=== PATIENT | female | born 1960 | race Caucasian/White ===

== ENCOUNTER 2024-12-21 01:00 | Day surgery (SDC) | payer BC, SELFPAY ==
[2024-12-07 11:37] VITALS: BMI 34.8
--- NOTE | 2024-12-07 11:50 | PC.NURSE ---
Report to the Outpatient Waiting Room, entrance under the green pavilion located off [facility], at time _0845am on date 12/21/24 . Planned Procedure Time: ___1045am. .? Time changes happen often and if your time is changed the preop area will call you the afternoon before. - You and your visitor will be asked to self-screen and do not enter if you have any COVID symptoms. Please call surgeon if you need to reschedule. - A mask is optional within the hospital at this time. Patients may have clear liquids (water, carbonated beverages, clear teas, apple juice) until 3 hours prior to surgery with a maximum of 20 ounces. - No food from midnight until time of surgery and no smoking, or chewing tobacco (or any form of nicotine). No chewing gum, candy or mints. (0745am) Take only the following medications with a SIP of water on the morning of surgery: NONE DO NOT STOP ANY OF YOUR OTHER PRESCRIPTION MEDICATIONS PRIOR TO SURGERY EXCEPT THE FOLLOWING Hold all vitamins and supplements for [address] Parks. .Date to take last dose___12/18/24 Medications to discontinue per physician ____None Date to take last dose None Please no make-up, nail portuguese, hairspray, perfume, deodorant, or body powder the day of surgery.? No jewelry (including any body piercings) or valuables the day of surgery, leave them at home.? Please take a shower or bath the night before, or the morning of, surgery with an antibacterial soap.? Wear comfortable, loose fitting clothing.? Children are encouraged to wear pajamas. - Jewelry must be removed prior to entering the operating room.? Rings and piercings that are not removed may be cut off. - The hospital will not accept responsibility for valuables.? - Please leave all valuables, including medications, at home the day of surgery. If you are going home after surgery, a licensed bobtail driver must drive you home.? - NO public transportation without another adult if you receive anesthesia. - We recommend that an adult stay with you for 24 hours following discharge. - We also recommend that you do not drive, make important decision, drink alcoholic beverages, or take any drugs that were not prescribed by your health care provider for at least 24 hours after your discharge time. Follow any additional instructions given to you from your surgeon. Telephone instructions given to __patient and asked if any additional questions and then verbalized understanding. Patient advised to call surgeon office or pre surgery nurse liaison [phone] if any additional questions.
--- NOTE | 2024-12-17 04:57 | PM.IMHP ---
H&P: HPI History of Present Illness Date/Time: 12/17/24 04:57 Chief Complaint: mixed incontinence Narrative: history of mixed incontinence. Desires surgical procedure to address stress incontinence Review of Systems Review of Systems: All systems reviewed & are unremarkable except as noted in HPI and below PMFSH Social History Social History Smoking status: Never smoker Alcohol intake: never Substance use: never Living arrangements: with family Additional living arrangements comments: Spiritual care concerns: No Meds Home Medications and Allergies Home Medications ?Medication ?Instructions ?Recorded ?Confirmed ?Type escitalopram oxalate 20 mg tablet 20 mg PO DAILY PRN anxiety 12/07/24 12/07/24 History metoclopramide HCl 5 mg tablet 5 mg PO QID 12/07/24 12/07/24 History pregabalin 150 mg capsule 150 mg PO HS 12/07/24 12/07/24 History solifenacin 10 mg tablet 10 mg PO DAILY 12/07/24 12/07/24 History Allergies Allergy/AdvReac Type Severity Reaction Status Date / Time amoxicillin Allergy Intermediate SOB, rash, Verified 12/07/24 11:34 swelling Penicillins Allergy Intermediate Rash, SOB, Verified 12/07/24 11:34 Swelling fentanyl AdvReac Intermediate unknown Verified 12/07/24 11:34 Exam Narrative: urethral mobility present Assessment and Plan Assessment and plan (1) YARELI (stress urinary incontinence, female): Code(s): N39.3 - Stress incontinence (female) (male) Status: Acute Assessment and Plan: plan for urethral sling. Understands risks of bleeding, infection, damage to surrounding organs, damage to the urinary tract, vaginal mesh extrusion, urinary tract mesh erosion, obstructive voiding requiring secondary procedure, hip and leg pain, dyspareunia, persistent recurrent incontinence. Agrees to proceed
--- OUTSIDE RECORDS SUMMARY | 2024-12-21 01:03 | XMS_ITS | Encounter Summary ---
Author Organization [facility] Address [address] [place] [address] Phone Care Team Providers Care Legal Department Manager Name Role Phone Julia Albarran PAC Unavailable Julia Albarran PAC Primary Care Provider + Neva Krishnamurthy APRN, FARM LAB[employer]ER Unavailable Reason for Visit * Reason Comments Medication Refill Encounter Details Date Type Department Care Team (Late st Contact Info) Description 02/14/2023 Refill [facility] - Family Medicine [facility] [address] [place] [address] Julia Albarran, PAC [address] [place] [address] Medication Refill Social History Tobacco Use Types Packs/Day Years Used Date Smoking Tobacco: Never Smokeless Tobacco: Never Alcohol Use Standard Drinks/Week Comments Not Currently 0 (1 standard drink = 0.6 oz pur e alcohol) PHQ-2 Answer Date Recorded Total Score - Questions 1-9 0 05/0 09/2021 Education Answer Date Recorded What is the highest level of school you have completed or the highest degree you have received? Bachelor's degree (e.g., BA, AB, BS) 07/14/2022 Sexually Active Control Partners Comments Not Currently None Male Comments No Sex and Gender Information Value Date Recorded Sex Assigned at Not on file Legal Sex Female 2:43 PM CDT Gender Identity Not on file Sexual Orientation Not on file COVID-19 Exposure Response Date Recorded In the last 10 days, have yo u been in contact with someone who was confirmed or suspected to have Coronavirus/COVID-19? No / Unsure 01/21/2023 7:52 AM CDT documented as of this encounter Miscellaneous Notes * Telephone Encounter - Sabrina Beverly RN - 02/14/2023 12:08 PM CDT 90 day refill on file according to last Rx 11/04/22 documented in this encounter Plan of Treatment Upcoming Encounters Date Type Department Care Team (Late st Contact Info) Description 02/07/2025 11:30 AM CDT Office Visit [facility] [address] [place] [address] Julia Albarran, PAC [address] [place] [address] 03/28/2025 4:00 PM CDT Office Visit [facility] [address] [place] [address] Julia Albarran PAC [address] [place] [address] documented as of this encounter Visit Diagnoses Not on filedocumented in this encounter Care Teams Legal Department Manager Relationship Specialty Start Date End Date Julia Albarran PAC [address] [place] [address] PCP - General Physician Hourly Shift Manager 12/21/21 Julia Albarran PAC [address] [place] [address] Physician Hourly Shift Manager Physician Hourly Shift Manager 12/21/21 Neva Krishnamurthy APRN, FARM LABORER [address] [place] [address] Nurse Practitioner Advanced Practice Nurse 12/24/22 documented as of this encounter
--- OUTSIDE RECORDS SUMMARY | 2024-12-21 01:03 | XMS_ITS | Clinical Summary ---
Author Organization [facility] Address [address] [place] [address] Phone Care Team Providers Care In Home Caregiver Name Role Phone Julia Albarran Unavailable [phone] Julia Albarran Primary Care Provider + Neva Krishnamurthy APRN, COOKING CHEF Unavailable Allergies Active Allergy Reactions Criticality Noted Date Comments Fentanyl And Related Other (see Comments) 12/21 Couldn't wake up Iodinated Contrast Media Shortness of Breath,Other (see Comments) High 11/11/2023 Chest tightness Morphine Other (see Comments) 12/21/2021 Headache and dry heaves Penicillins Anaphylaxis 12/21/2021 Midazolam Other (see Comments) 03/16/2022 Trouble waking up Medications ondansetron (ZOFRAN-ODT) 4 MG TABLET DISPERSIBLEInd ications:Vomit ing, unspecified vomiting type, unspecified whether nausea present DISSOLVE 1 TABLET BY MOUTH EVERY 8 HOURS NEEDED FOR NAUSEA - 1ST LINE. 20 Tablet 03/21/20 23 Active nystatin 418171 UNIT/GM Powder Apply 3 times daily. Apply to affected area as directed under skin folds 60 g 1 12/09/19 24 Active hydrOXYzine (ATARAX) 25 MG Tablet Take 1 Tablet by mouth every 6 hours as needed for Anxiety. 90 Tablet 01/17/20 24 Active naproxen (NAPROSYN) 500 MG Tablet TAKE 1 TABLET BY MOUTH 2 TIMES DAILY NEEDED FOR MILD OR MORE SEVERE PAIN. 20 Tablet 9 06/28/20 24 Active cyclobenzaprin e (FLEXERIL) 10 MG Tablet TAKE 1 TABLET BY MOUTH EVERY 6-8 HOURS NEEDED 12 Tablet 9 06/28/20 24 Active fluticasone (FLONASE) 50 MCG/ACT Suspension 2 Sprays by Nasal route daily. Use in each nostril as directed. 16 g 1 09/10/19 25 Active metoclopramide (REGLAN) 5 MG Tablet TAKE 1 TABLET BY MOUTH 4 TIMES DAILY (BEFORE MEALS AND NIGHTLY). 90 Tablet 10/17/19 25 Active escitalopram (LEXAPRO) 20 MG Tablet TAKE 1 TABLET BY MOUTH DAILY. 90 Tablet 1 10/17/19 25 Active pantoprazole (PROTONIX) 40 MG Tablet Delayed Response TAKE 1 TABLET BY MOUTH 2 TIMES DAILY. 180 Tablet 1 10/17/19 25 Active Blood Glucose Monitoring Suppl DeviceIndicati ons:Hypoglycem ia Test once daily if feeling symptoms of low blood sugar 1 Each 11/07/19 25 Active Glucose Blood (Glucose Meter Test) StripIndicatio ns:Hypoglycemi a Test once daily 90 Strip 11/07/19 25 Active Lancets MiscIndication s:Hypoglycemia Test once daily 100 Lancet . 11/07/19 25 Active pregabalin (LYRICA) 150 MG CapsuleIndicat ions:Fibromyal merna Take 1 Capsule by mouth nightly. 90 Capsule 11/08/19 25 Active potassium chloride CR (KLORCON) 10 MEQ Tablet Controlled ReleaseIndicat ions:Hypokalem ia Take 1 Tablet by mouth daily. 90 Tablet 3 11/16/19 25 Active solifenacin (VESICARE) 10 MG TabletIndicati ons:Urinary frequency,Urin car incontinence, urge TAKE 1 TABLET BY MOUTH DAILY. 30 Tablet 11 11/27/19 25 Active ergocalciferol (VITAMIN D) 11654 UNIT CapsuleIndicat ions:Vitamin D deficiency Take 1 Capsule by mouth once a week. 12 Capsule 1 12/19/19 25 Active Denosumab (PROLIA) 60 MG/ML Solution Prefilled SyringeIndicat ions:Osteoporo sis 1 mL by Subcutaneous route See Admin Instructions. Indications: Osteoporosis 1 mL 12/21/19 25 Active solifenacin (VESICARE) 10 MG TabletIndicati ons:Urinary frequency,Urin car incontinence, urge TAKE 1 TABLET BY MOUTH DAILY. 30 Tablet 1 10/17/19 25 2024 Discontinued ergocalciferol (VITAMIN D) 14626 UNIT CapsuleIndicat ions:Vitamin D deficiency Take 1 Capsule by mouth once a week. 12 Capsule 1 11/16/19 25 2024 Discontinued(R eorder) Active Problems Problem Noted Date Diagnosed Date Osteoporosis 12/18/2024 History of Shant-en-Y gastric bypass 12/09/2023 Chronic gastroesophageal reflux disease 02/03/20 22 Anxiety and depression 12/21/2021 Fibromyalgia 12/21/2021 Encounters Date Type Department Care Team Description 12/18/2024 3:45 PM CDT Office Visit [facility] [address] [place] [address] Julia Albarran PAC Hypokalemia (Primary Dx); Vitamin D deficiency; Chronic gastroesophageal reflux disease; Osteoporosis, unspecified osteoporosis type, unspecified pathological fracture presence; Has daytime drowsiness Discharge Disposition: Discharged to home or Selfcare 12/18/2024 1:35 PM CDT - 12/18/2024 11:59 PM CDT [facility] [address] [place] [address] Julia Albarran PAC Discharge Disposition: Discharged to home or Selfcare 12/17/2024 Travel 11/26/2024 Refill [facility] [place] [id number] Maninder Thurman APRN, COOKING CHEF Medication Refill 11/15/2024 Results Follow-Up [facility] [address] [place] [address] Julia Albarran, MARLA VITAMIN D, 25 HYDROXY TOTAL, CMP (COMPREHENSIVE METABOLIC PANEL), C PEPTIDE, Additional followed-up results: 3 11/07/2024 Refill [facility] [address] [place] [address] Julia Albarran, MARLA Medication Problem 11/06/2024 3:00 PM CDT Office Visit [facility] [address] [place] [address] Julia Albarran, MARLA Hypoglycemia (Primary Dx); Vitamin D deficiency; Near syncope; Fibromyalgia Discharge Disposition: Discharged to home or Selfcare 11/06/2024 Travel 10/17/2024 Refill [facility] [address] [place] [address] Black Brewer APRN, COOKING CHEF Medication Refill 10/17/2024 Refill [facility]2 [facility] [place] [address] Maninder Thurman APRN, COOKING CHEF Medication Refill 10/17/2024 Refill [facility] [address] [place] [address] Julia Albarran, MARLA Medication Refill 09/26/2024 Telephone [facility] [facility] [place] [address] Maninder Thurman APRN, COOKING CHEF from Last 3 Months Immunizations Immunization Administration Dates Next Due COVID-19, MRNA, LNP-S, BIVAL ENT , PFIZER, 30 MCG/0.3 ML (12+ Y/O) 06/03/2022 Covid-19, Subunit, Rs-nanopa rticle, Adjuvanted, Pf, 5 Mcg/0.5 mL 07/01/2023 Influenza Vaccine, Quadrivalent, PF 06/18/2023,1 Influenza, high-dose, trivalent, PF 01/13/2024 Pneumococcal conjugate PCV20 , polysaccharide [id number] conjugate, adjuvant, PF 07/01/2023 RSV, Recombinant, Protein Carpenter bunit Rsvpref, Adjuvant Recon (Arexvy) 06/09/2023,06/06/2023 TDAP Vaccine 09/15/2023 Zoster Vaccine Recombinant 09/15/2023,06/09/2023 ,06/06/2023 Family History Medical History Relation Name Comments Chronic Obstructive Pulmonary Disease Father Cancer Mother Jalyn Brain tumor Depression Mother Jalyn No Known Problems Sister Relation Name Status Comments Father Mother Jalyn Sister Alive Social History Tobacco Use Types Packs/Day Years Used Date Smoking Tobacco: Never Smokeless Tobacco: Never Tobacco Cessation:Counseling Given: No Alcohol Use Standard Drinks/Week Comments Not Currently 0 (1 standard drink = 0.6 oz pure alcohol) quit drinking in 2008 or 2009, was a daily drinker since 1998 [facility] amcureities Answer Date Recorded In the past 12 months has [employer] electric, gas, oil, or water company threatened to shut off services in your home? No 11/06/2024 Social Connection and Isolat ion Panel [NHANES] Answer Date Recorded In a typical week, how many times do you talk on the phone with family, friends, or neighbors? More than three times a week 11/06/2024 How often do you get togethe r with friends or relatives? Never 11/06/2024 How often do you attend chur ch or holiness services? Never 11/06/2024 Do you belong to any clubs o r organizations such as mu-ism groups, unions, fraternal or athletic groups, or school groups? Yes 11/06/2024 How often do you attend meet ings of the clubs or organizations you belong to? Never 11/06/2024 Are you , , di vorced, , never , or living with a partner? 11/06/2024 AUDIT-C Answer Date Recorded Q1: How often do you have a drink containing alcohol? Never 11/06/2024 Q2: How many drinks containi ng alcohol do you have on a typical day when you are drinking? Patient does not drink Q3: How often do you have si x or more drinks on one occasion? Never 11/06/2024 Overall Financial Resource Strain (CARDIA) Answe r Date Recorded How hard is it for you to pa y for the very basics like food, housing, medical care, and heating? Not hard at all 11/06/2024 PHQ-2 Answer Date Recorded Total Score - Questions 1-9 0 08/23 [place] [employer] - Occupational Stress Questionnaire Answer Date Recorded Do you feel stress - tense, restless, nervous, or anxious, or unable to sleep at night because your mind is troubled all the time - these days? To some extent 11/06/2024 Exercise Vital Sign Answer Date Recorde d On average, how many days pe r week do you engage in moderate to strenuous exercise (like a brisk walk)? 0 days 11/06/2024 On average, how many minutes do you engage in exercise at this level? 0 min 11/06/2024 Hunger Vital Sign Answer Date Recorded Within the past 12 months, y ou worried that your food would run out before you got the money to buy more. Never true 11/07/19 25 Within the past 12 months, t he food you bought just didn't last and you didn't have money to get more. Never true 11/06/2024 PRAPARE - Transportation Answer Date Re corded In the past 12 months, has l ack of transportation kept you from medical appointments or from getting medications? No 10/20 In the past 12 months, has l ack of transportation kept you from meetings, work, or from getting things needed for daily living? No 11/06/2024 Housing Stability Vital Sign Answer Gio e Recorded In the last 12 months, was t here a time when you were not able to pay the mortgage or rent on time? No 12/09/2023 In the last 12 months, how many places have you lived? 1 12/09/2023 In the last 12 months, was t here a time when you did not have a steady place to sleep or slept in a residential (including now)? No 12/09/2023 Housing Stability Vital Sign Answer Gio e Recorded In the last 12 months, was t here a time when you were not able to pay the mortgage or rent on time? No 11/06/2024 Number of Times Moved in the Last Year Not on fi le 11/06/2024 At any time in the past 12 [facility], were you homeless or living in a residential (including now)? No 11/06/2024 Education Answer Date Recorded What is the highest level of school you have completed or the highest degree you have received? Bachelor's degree (e.g., BA, AB, BS) 07/14/2022 Sexually Active Control Partners Comments Not Currently Post-menopausal Male Comments No Sex and Gender Information Value Date Recorded Sex Assigned at Not on file Legal Sex Female 2:43 PM CDT Gender Identity Not on file Sexual Orientation Not on file Last Filed Vital Signs Vital Sign Reading Time Taken Comments Blood Pressure 128/84 12/18/2024 3:25 PM CDT Pulse 68 12/18/2024 3:25 PM CDT Temperature 36.5 C (97.7 F) 12/18/2024 3:25 PM CDT Respiratory Rate 18 09/10/2024 9:01 AM DIRECTOR OF FLIGHT OPERATIONS Oxygen Saturation 95% 12/18/2024 3:25 PM CDT Inhaled Oxygen Concentration - - Weight 93.4 kg (206 lb) 12/18/2024 3:25 PM CDT Height 162.6 cm (5' 4 ) 12/18/2024 3:25 PM CDT Body Mass Index 35.36 12/18/2024 3:25 PM CDT Plan of Treatment Upcoming Encounters Date Type Department Care Team (Late st Contact Info) Description 02/07/2025 11:30 AM CDT Office Visit [facility] [address] [place] [address] Julia Albarran, PAC [address] [place] [address] 03/28/2025 4:00 PM CDT Office Visit [facility] [address] [place] [address] Julia Albarran, PAC [address] [place] [address] Health Maintenance Due Date Last Done Comments Pap Smear 1980 Cervical Cancer Screening (CCS) 1989 HPV/Cotest 1989 Cologuard 2009 Immunochemical Fecal Occult Blood 2009 Mammogram 05/30/2024 05/30/2023 SARS-COV-2 Immunization ( season) 2024 05/04/2024, 07/01/2023, 06/03/2022, Additional history exists Influenza Immunization (Season Ended) 2025 01/13/2024, 06/18/2023, 05/27/2022 DEXA Bone Density 12/18/2026 12/18/2024 Colonoscopy 07/08/2033 07/08/2023 Colorectal Cancer Screening 07/08/2033 Td Immunization Every 10 Years (Adults With 1 Tdap) 09/15/2033 09/15/2023 07/08/2023 Hepatitis C Virus (HCV) Screening Completed 04/21/2023 Respiratory Syncytial Virus (RSV) Immunization (Adult) Completed 06/09/2023, 06/06/2023 Pneumococcal Immunization (50+ years) Completed 07/01/2023 Pneumococcal Immunization Combined Discontinued 07/01/2023 DTaP/Tdap/Td Immunization Discontinued 09/15/2023 TdaP Immunization Discontinued 09/15/2023 Zoster Immunization Completed 09/15/2023, 06/09/2023, 06/06/2023 Hepatitis B Immunization Aged Out No longer eligible based on patient's age to complete this topic Meningococcal Immunization (ACWY) Aged Out No longer eligible based on patient's age to complete this topic Rotavirus Immunization Aged Out No lo nger eligible based on patient's age to complete this topic Goals Goal Patient Goal Type Associated Problems Recent Progress Patient-Stated? Author Behavioral Health Behavioral Health Yes Dejah Pisano, LOAN MANAGER Note: I have a goal of getting my life and house straight. Procedures Procedure Name Priority Date/Time Associated Diagnosis Comments CINTHIA BONE DENSITOMETRY AXIAL SKELETON Routine 12/18/2024 2:06 PM CDT Screening for osteoporosis EXTERNAL UROLOGY REFERRAL Routine 11/29/2024 12:00 AM CDT Urinary incontinence, unspecified type CBC WITH AUTO DIFFERENTIAL Routine 11/06/2024 4:15 PM CDT Near syncope MAGNESIUM (MG) Routine 11/06/2024 4:15 PM CDT Near syncope COMPLETE BLOOD COUNT (CBC) WITH DIFF Routine 11/06/2024 4:15 PM CDT Near syncope INSULIN LEVEL Routine 11/06/2024 4:15 PM CDT Hypoglycemia C PEPTIDE Routine 11/06/2024 4:15 PM CDT Hypoglycemia CMP (COMPREHENSIVE METABOLIC PANEL) Routine 11/06/2024 4:15 PM CDT Hypoglycemia VITAMIN D, 25 HYDROXY TOTAL Routine 11/06/2024 4:15 PM CDT Vitamin D deficiency [facility] SCREENING BILATERAL DIGITAL W CAD W LESVIA Routine 05/30/2023 8:46 AM CDT Screening mammogram for breast cancer HEPATITIS C ANTIBODY Routine 04/21/2023 4:54 PM CDT Need for hepatitis C screening test from Last 3 Months or Most Recently Relevant to Health Maintenance Results * [facility] BONE DENSITOMETRY AXIAL SKELETON (12/18/2024 2:06 PM CDT) Anatomical Region Laterality Modality BODY N/A Computed Radiogr aphy 12/18/2024 2:29 PM CDT Impressions 12/18/2024 2:32 PM CDT IMPRESSION: Osteoporosis. REFERENCE: Bone mineral density: T-Score: Normal (T-score above or = -1.0) Low bone mass (T-score between -1.0 and -2.5) replaces the previously used term osteopenia Osteoporosis (T-score = or below -2.5) Z-Score: Within the expected range for age (Z-score above -2.0) Below the expected range for age (Z-score is -2.0 or below) Please see below follow up recommendations. Medical evaluation for secondary causes of low bone mineral density may be appropriate. FRAX is a World Health Organization validated fracture risk assessment tool that calculates a person's 10 year probability of a major osteoporosis related fracture and hip fracture. According to the National Osteoporosis Foundation guidelines, postmenopausal women and men age 50 or older with low bone mass and a 10 year probability of a major osteoporosis related fracture = or greater than 20% or a 10 year probability of a hip fracture = or greater than 3% should be considered for pharmacological treatment for the prevention of osteoporosis. For further information, including treatment recommendations, please refer to the 2019 ISCD Official Positions (http://www.iscd.org) and the NOF's Clinician's Guide to Prevention and Treatment of Osteoporosis (http://www.nof.org/professionals/clinical-guidelines) Narrative 12/18/2024 2:32 PM CDT EXAM DESCRIPTION: [facility] BONE DENSITOMETRY AXIAL SKELETON REASON FOR STUDY: 64 y/o year old F with given history of: Postmenopausal status. History of prior fracture and secondary osteoporosis. Patient has taken/is taking vitamin-D and multivitamin Nutrition Services Assistant/Model: [employer] (S/N [id number]) Facility LSC value of 0.028 for the AP spine and 0.033 for the femur. CLINICAL INFORMATION: Current height: 64 inches Maximum height: 65 inches Weight: 203 pounds Risk factors: Prior fracture and secondary osteoporosis COMPARISON: None available FINDINGS: AP LUMBAR SPINE L1-L4: Total BMD is 0.876 g/cm2 T-score is -2.6 LEFT HIP: Total BMD is 0.688 g/cm2 T-score is -2.5 Femoral neck BMD is 0.697 g/cm2 T-score is -2.5 FRAX: FRAX not reported due to T-scores of hip, femoral neck and/or spine being at or below -2.5 (Osteoporosis). THIS IS AN ELECTRONICALLY VERIFIED FINAL REPORT 12/18/2024 2:29 PM - Electronically signed by Barbie Brown M.D. TW: TW Report ID: [id number] Reading Location: [id number] Procedure Note Barbie Brown MD - 12/18/2024 EXAM DESCRIPTION: [facility] BONE DENSITOMETRY AXIAL SKELETON REASON FOR STUDY: 64 y/o year old F with given history of: Postmenopausal status. History of prior fracture and secondary osteoporosis. Patient has taken/is taking vitamin-D and multivitamin Nutrition Services Assistant/Model: [employer] (S/N [id number]) Facility LSC value of 0.028 for the AP spine and 0.033 for the femur. CLINICAL INFORMATION: Current height: 64 inches Maximum height: 65 inches Weight: 203 pounds Risk factors: Prior fracture and secondary osteoporosis COMPARISON: None available FINDINGS: AP LUMBAR SPINE L1-L4: Total BMD is 0.876 g/cm2 T-score is -2.6 LEFT HIP: Total BMD is 0.688 g/cm2 T-score is -2.5 Femoral neck BMD is 0.697 g/cm2 T-score is -2.5 FRAX: FRAX not reported due to T-scores of hip, femoral neck and/or spine being at or below -2.5 (Osteoporosis). THIS IS AN ELECTRONICALLY VERIFIED FINAL REPORT 12/18/2024 2:29 PM - Electronically signed by Barbie Brown M.D. TW: TW Report ID: [id number] Reading Location: [place] [address] IMPRESSION: Osteoporosis. REFERENCE: Bone mineral density: T-Score: Normal (T-score above or = -1.0) Low bone mass (T-score between -1.0 and -2.5) replaces the previously used term osteopenia Osteoporosis (T-score = or below -2.5) Z-Score: Within the expected range for age (Z-score above -2.0) Below the expected range for age (Z-score is -2.0 or below) Please see below follow up recommendations. Medical evaluation for secondary causes of low bone mineral density may be appropriate. FRAX is a World Health Organization validated fracture risk assessment tool that calculates a person's 10 year probability of a major osteoporosis related fracture and hip fracture. According to the National Osteoporosis Foundation guidelines, postmenopausal women and men age 50 or older with low bone mass and a 10 year probability of a major osteoporosis related fracture = or greater than 20% or a 10 year probability of a hip fracture = or greater than 3% should be considered for pharmacological treatment for the prevention of osteoporosis. For further information, including treatment recommendations, please refer to the 2019 ISCD Official Positions (http://www.iscd.org) and the NOF's Clinician's Guide to Prevention and Treatment of Osteoporosis (http://www.nof.org/professionals/clinical-guidelines) Julia Albarran PAC IMG DEXA ORDERABLES Lucita l Result * EXTERNAL UROLOGY REFERRAL (11/29/2024 12:00 AM CDT) 11/29/2024 Julia Albarran PAC OUTPT REFERRALS EXT/INT Final Result SCAN * VITAMIN D, 25 HYDROXY TOTAL (11/06/2024 4:15 PM CDT) VITAMIN D, 25 HYDROX 12.4 ng/mL 11/06/2024 5:29 PM CDT [facility] Blood Venipuncture / Unknown 11/06/2024 4:15 PM CDT 11/06/2024 4:31 PM CDT Narrative [facility] - 11/06/2024 5:29 PM CDT Published reference ranges for Vitamin D vary depending on time and place and method of testing, and on patient's age, sex, ethnicity and levels of other measured analytes such as parathormone, calcium and phosphorus. The result should be evaluated in conjunction with clinical findings and suspicions. [place] [employer] and [employer] Clinical Practice Guidelines: Status Vitamin D levels (ng/mL) Deficient <=20 At risk of inadequacy 21-29 Sufficient 30-100 Centers of Disease Control and Prevention Guidelines: Status Vitamin D levels (ng/mL) Deficient <13 At risk of inadequacy 13-19 Sufficient 20-50 Possibly harmful >50 References: [place] [employer], 2010 Dietary reference intakes for calcium and vitamin D. Pr[place]: The National Academies Press. Jose M, Aiden N, Cheryl MUNOZ, et al., Evaluation, treatment, and prevention of Vitamin D deficiency: an Endocrinology Clinical Practice Guideline. JCEM 2011 96: 7 4714-7977. Robert A, Maico C, Lolly D, et al., Vitamin D Status: [place], 2400-4429, [facility] data brief, no. 59, MD Grzegorz: [facility] Statistics. 2011. us Julia Drakematheus PAC CHEMISTRY ORDERABLES Fin al Result [facility] #[address] [place] [address] * (ABNORMAL) CBC WITH AUTO DIFFERENTIAL (11/06/2024 4:15 PM CDT) WBC 5.84 4.00 - 12.00 10(3)/mcL 11/06/2024 4:47 PM CDT [facility] RBC 4.90 3.80 - 5.30 10(6)/mcL 11/06/2024 4:47 PM CDT [facility] HEMOGLOBIN (HGB) 12.8 12.0 - 15.8 g/dL 11/06/2024 4:47 PM CDT [facility] HEMATOCRIT (HCT) 40.6 36.0 - 47.0 % 11/06/2024 4:47 PM CDT [facility] MCV 82.9 82.0 - 96.0 fL 11/06/2024 4:47 PM CDT [facility] MCH 26.1 26.0 - 34.0 pg 11/06/2024 4:47 PM CDT [facility] MCHC 31.5 31.0 - 36.0 g/dL 11/06/2024 4:47 PM CDT [facility] PLATELET COUNT 273 140 - 440 10(3)/mcL 11/06/2024 4:47 PM CDT [facility] RDW 15.3 11.8 - 15.5 % 11/06/2024 4:47 PM CDT [facility] MPV 10.5 9.7 - 12.4 fL 11/06/2024 4:47 PM CDT [facility] NEUTROPHILS 50.2 47.0 - 73.0 % 11/06/2024 4:47 PM CDT [facility] LYMPHOCYTES 36.6 18.0 - 42.0 % 11/06/2024 4:47 PM CDT [facility] MONOCYTES 6.3 4.0 - 12.0 % 11/06/2024 4:47 PM CDT [facility] EOSINOPHILS 5.5(H) 0.0 - 5.0 % 11/06/2024 4:47 PM CDT [facility] BASOPHILS 1.4(H) 0.0 - 1.0 % 11/06/2024 4:47 PM CDT [facility] ABSOLUTE NEUTROPHILS 2.93 1.60 - 7.70 10(3)/[facility] 11/06/2024 4:47 PM CDT [facility] ABSOLUTE LYMPHOCYTES 2.14 1.30 - 3.20 10(3)/[facility] 11/06/2024 4:47 PM CDT [facility] ABSOLUTE MONOCYTES 0.37 0.20 - 1.00 10(3)/[facility] 11/06/2024 4:47 PM CDT [facility] ABSOLUTE EOSINOPHIL 0.32 0.00 - 0.40 10(3)/[facility] 11/06/2024 4:47 PM CDT [facility] ABSOLUTE BASOPHILS 0.08 0.00 - 0.10 10(3)/[facility] 11/06/2024 4:47 PM CDT [facility] NRBC PER 100 WBC 0 11/07/19 4:47 PM CDT [facility] Blood Venipuncture / Unknown 11/06/2024 4:15 PM CDT 11/06/2024 4:31 PM CDT us Julia Albarran PAC HEMATOLOGY ORDERABLES Fi nal Result [facility] [address] [place] [address] * MAGNESIUM (MG) (11/06/2024 4:15 PM CDT) MAGNESIUM 2.3 1.6 - 2.6 mg/dL 11/06/2024 5:04 PM CDT [facility] Blood Venipuncture / Unknown 11/06/2024 4:15 PM CDT 11/06/2024 4:32 PM CDT us Julia Drakealmaamalia PAC CHEMISTRY ORDERABLES Fin al Result [facility] [place] [address] * INSULIN LEVEL (11/06/2024 4:15 PM CDT) Pathologist [facility] INSULIN 7.0 3.0 - 28.0 uU/mL 11/07/2024 2:02 AM CDT [facility] Blood Venipuncture / Unknown 11/06/2024 4:15 PM CDT 11/06/2024 4:31 PM CDT us Julia Drakematheus PAC CHEMISTRY ORDERABLES Fin al Result Performing Organization Address City/[facility]/ZIP Co de Phone Number [facility] [address] [place] [address], * (ABNORMAL) CMP (COMPREHENSIVE METABOLIC PANEL) (11/06/2024 4:15 PM CDT) SODIUM 142 136 - 145 mmol/L 11/06/2024 5:04 PM CDT [facility] [facility] POTASSIUM 3.2(L) 3.5 - 5.1 mmol/L 11/06/2024 5:04 PM CDT [facility] CHLORIDE 106 98 - 107 mmol/L 11/06/2024 5:04 PM CDT [facility] CO2, VENOUS 25 22 - 30 mmol/L 11/06/2024 5:04 PM CDT [facility] ANION GAP 14.2 <18.0 mmol/L 11/06/2024 5:04 PM CDT [facility] GLUCOSE 89 70 - 99 mg/dL 11/06/2024 5:04 PM CDT [facility] BUN 8(L) 10 - 20 mg/dL 11/06/2024 5:04 PM CDT [facility] CREATININE, BLOOD 0.75 0.60 - 1.00 mg/dL 11/06/2024 5:04 PM CDT [facility] BUN/CREATININE RATIO 11(L) 12 - 20 ratio 11/06/2024 5:04 PM CDT [facility] TOTAL PROTEIN 7.2 6.0 - 8.0 g/dL 11/06/2024 5:04 PM CDT [facility] ALBUMIN 3.9 3.5 - 5.0 g/dL 11/06/2024 5:04 PM CDT [facility] A/G RATIO 1.2 1.0 - 2.2 11/06/2024 5:04 PM CDT [facility] CALCIUM 8.7 8.7 - 10.5 mg/dL 11/06/2024 5:04 PM CDT [facility] T BILI 0.3 0.2 - 1.2 mg/dL 11/06/2024 5:04 PM CDT [facility] SGOT (AST) 18 <43 U/L 11/06/2024 5:04 PM T [facility] SGPT (ALT) 14 <56 U/L 11/06/2024 5:04 PM T [facility] ALKALINE PHOSPHATASE 67 40 - 150 U/L 11/06/2024 5:04 PM CDT [facility] IS THE PATIENT REQUIRED TO BE FASTING? No 11/06/2024 5:04 PM CDT [facility] GFR, ESTIMATED >60 >=60 11/06/2024 5:04 PM T [facility] Comment: Creatinine Clearance is the preferred criteria for selecting drug dose adjustments in renally impaired patients. The GFR is provided as additional pertinent clinical information. GFR is reported in mL/min/1.73 sq m. Calculation based on the Chronic Kidney Disease Epidemiology Collaboration (CKD- EPI) equation refit without adjustment for race. GFR, EST. >60 >=60 025 5:04 PM CDT [facility] GFR, EST. NONAFRICAN >60 >=60 11/06/2024 5:04 PM CDT [facility] Blood Venipuncture / Unknown 11/06/2024 4:15 PM CDT 11/06/2024 4:32 PM CDT us Mariama Vidalmatheus PAC CHEMISTRY ORDERABLES Fin al Result Performing Organization Address City/[facility] Co de Phone Number [facility] [address] [place] [address] * C PEPTIDE (11/06/2024 4:15 PM CDT) C PEPTIDE 3.14 0.78 - 5.19 ng/mL 11/07/2024 1:02 AM CDT [facility] Blood Venipuncture / Unknown 11/06/2024 4:15 PM CDT 11/06/2024 4:31 PM CDT Julia Drakematheus PAC CHEMISTRY ORDERABLES Fin al Result Performing Organization Address [facility] Co de Phone Number [facility] [address] [place] [address], [place] * CINTHIA SCREENING BILATERAL DIGITAL W CAD W LESVIA (05/30/2023 8:46 AM CDT) Anatomical Region Laterality Modality breast Bilateral Mammography 05/30/2023 9:42 AM CDT Narrative 06/08/2023 9:58 AM CDT - CINTHIA SCREENING BILATERAL DIGITAL W CAD W LESVIA BILATERAL DIGITAL SCREENING MAMMOGRAM 3D/2D WITH CAD WITH MEDIOLATERAL OBLIQUE CRANIOCAUDAL: 05/30/2023 The study was acquired using digital technology and interpreted from soft copy. Current study was also evaluated with ICAD version 7.2. 2D digital mammographic views, as well as 3D digital tomosynthesis were performed in the CC and MLO projections. CLINICAL: Routine screening. Patient has no complaints. No personal history of cancer. Two maternal aunts had breast cancer. COMPARISONS: Comparison is made to exams dated: 06/02/2015 and 03/31/2018 [facility]. BREAST TISSUE:The tissue of both breasts is predominantly fatty. FINDINGS: A loop recorder is present on the left. No significant masses, calcifications, or other findings are seen in either breast. There has been no significant interval change. IMPRESSION: BI-RAD 1 NEGATIVE There is no mammographic evidence of malignancy. A 1 year screening mammogram is recommended. A letter will be sent to the patient with these results. The patient will be entered into a reminder system with a target due date of 1 year for her next screening exam. Electronically signed by: Drea Goyal M.D. ll/:06/07/2023 21:12:13 Oracle Architect(s): RT Baron(R)(M), [facility] letter sent: Normal Exam Reading location: [facility] BI-RADS: 1 Negative Procedure Note Drea Goyal MD - 06/08/2023 - CINTHIA SCREENING BILATERAL DIGITAL W CAD W LESVIA BILATERAL DIGITAL SCREENING MAMMOGRAM 3D/2D WITH CAD WITH MEDIOLATERAL OBLIQUE CRANIOCAUDAL: 05/30/2023 The study was acquired using digital technology and interpreted from soft copy. Current study was also evaluated with ICAD version 7.2. 2D digital mammographic views, as well as 3D digital tomosynthesis were performed in the CC and MLO projections. CLINICAL: Routine screening. Patient has no complaints. No personal history of cancer. Two maternal aunts had breast cancer. COMPARISONS: Comparison is made to exams dated: 06/02/2015 and 03/31/2018 [facility]. BREAST TISSUE:The tissue of both breasts is predominantly fatty. FINDINGS: A loop recorder is present on the left. No significant masses, calcifications, or other findings are seen in either breast. There has been no significant interval change. IMPRESSION: BI-RAD 1 NEGATIVE There is no mammographic evidence of malignancy. A 1 year screening mammogram is recommended. A letter will be sent to the patient with these results. The patient will be entered into a reminder system with a target due date of 1 year for her next screening exam. Electronically signed by: Drea Goyal M.D. ll/:06/07/2023 21:12:13 Oracle Architect(s): RT Baron(R)(M), [facility] letter sent: Normal Exam Reading location: [facility] BI-RADS: 1 Negative us Julia Albarran PAC IMG MAMMO ORDERABLES Fin al Result * HEPATITIS C ANTIBODY (04/21/2023 4:54 PM CDT) hepatitis C antibody 0.09 <1 S/CO [facility] ARCH [id number] B 04/22/2023 3:49 PM CDT [facility] Comment: Signal/Cutoff ratio < 0.79 is Nondetected Signal/Cutoff ratio 0.80-0.99 is Grayzone Signal/Cutoff ratio > 0.99 is Detected Supplemental assays are recommended if signal/cutoff ratio is >/=1.00. Signal/cutoff ratio result >/= 5.00 is 97% predictive of positivity for recombinant immunoblot assay (RIBA) and will be reported to the [place] [facility] as required. Blood Venipuncture / Unknown 04/21/2023 4:54 PM CDT 04/21/2023 5:30 PM CDT Julia Albarran PAC CHEMISTRY ORDERABLES Fin al Result [facility] [address] [place] [address], from Last 3 Months or Most Recently Relevant to Health Maintenance Insurance [facility] MEDICARE Care Teams In Home Caregiver Relationship Specialty Start Date End Date Julia Albarran PAC [address] [place] [address] PCP - General Physician In Tube Conversion Technician 12/21/21 Julia Albarran PAC [address] [place] [address] Physician In Tube Conversion Technician Physician In Tube Conversion Technician 12/21/21 Neva Krishnamurthy APRN, COOKING CHEF [address] [place] [address] Nurse Practitioner Advanced Practice Nurse 12/24/22
--- OUTSIDE RECORDS SUMMARY | 2024-12-21 01:03 | XMS_ITS | Encounter Summary ---
Author Organization [facility] Healthcare Address [address] [place] [address] Care Team Providers Care City Jailer Name Role Phone Julia Albarran Primary Care Provider + [phone] Gardenia Mcneal MD Unavailable [phone] Encounter Details Date Type Department Care Team (Late st Contact Info) Description 11/21/[address] [address] Adele Harrell RN Social History Tobacco Use Types Packs/Day Years Used Date Smoking Tobacco: Never Smokeless Tobacco: Never AUDIT-C Answer Date Recorded Frequency of Alcohol Consumption Not on file 11/12/2023 Q2: How many drinks containi ng alcohol do you have on a typical day when you are drinking? Patient does not drink Frequency of Binge Drinking Not on file 10/21 Personal Safety Answer Date Recorded Have you ever been in or are you currently in a harmful physical or emotional relationship or is someone making you feel afraid or unsafe? Denies 11/11/2023 Comments No Sex and Gender Information Value Date Recorded Sex Assigned at Not on file Legal Sex Female 2:06 PM CDT Gender Identity Not on file Sexual Orientation Not on file documented as of this encounter Plan of Treatment Not on file documented as of this encounter Visit Diagnoses Not on filedocumented in this encounter Care Teams City Jailer Relationship Specialty Start Date End Date Julia Albarran PA [address] [address] PCP - General Flexographic Press Set Up Operator 01/22/22 [place] [id number] [address] Consulting Physician Gastroenterology 11/15/23 documented as of this encounter
--- OUTSIDE RECORDS SUMMARY | 2024-12-21 01:03 | XMS_ITS | Encounter Summary ---
Author Organization [facility] Address [address] [place] [address] Phone Care Team Providers Care Bowling Ball Marker Name Role Phone EvJulia holland MARLA Unavailable [phone] Julia Albarran Primary Care Provider + Neva Krishnamurthy APRN, SINGEING TORCH OPERATOR Unavailable Reason for Visit * Reason Comments Medication Refill Encounter Details Date Type Department Care Team (Late st Contact Info) Description 08/17/2024 Refill [facility] [place] [address] [place] [address] Black Brewer, ADDIE, SINGEING TORCH OPERATOR [address] [address] Medication Refill Social History Tobacco Use Types Packs/Day Years Used Date Smoking Tobacco: Never Smokeless Tobacco: Never Alcohol Use Standard Drinks/Week Comments Not Currently 0 (1 standard drink = 0.6 oz pure alcohol) quit drinking in 2008 or 2009, was a daily drinker since 1998 [facility] Utilities Answer Date Recorded In the past 12 months has Luminescent, gas, oil, or water [employer] threatened to shut off services in your home? No 12/09/2023 Social Connection and Isolation Panel [NHANES] A nswer Date Recorded In a typical week, how many times do you talk on the phone with family, friends, or neighbors? Never 12/09/2023 How often do you get together with friends or re latives? Never 12/09/2023 How often do you attend buddhism or church serv ices? Never 12/09/2023 Do you belong to any clubs o r organizations such as buddhism groups, unions, fraternal or athletic groups, or school groups? Yes 12/09/2023 How often do you attend meet ings of the clubs or organizations you belong to? Never 12/09/2023 Are you , , di vorced, , never , or living with a partner? 12/09/2023 AUDIT-C Answer Date Recorded Q1: How often do you have a drink containing alcohol? Never 12/09/2023 Q2: How many drinks containi ng alcohol do you have on a typical day when you are drinking? Patient does not drink Q3: How often do you have si x or more drinks on one occasion? Never 12/09/2023 Overall Financial Resource Strain (CARDIA) Answe r Date Recorded How hard is it for you to pa y for the very basics like food, housing, medical care, and heating? Not hard at all 12/09/2023 PHQ-2 Answer Date Recorded Total Score - Questions 1-9 0 03/24 [facility] - Occupational Stress Questionnaire Answer Date Recorded Do you feel stress - tense, restless, nervous, or anxious, or unable to sleep at night because your mind is troubled all the time - these days? Not at all 12/09/2023 Exercise Vital Sign Answer Date Recorde d On average, how many days pe r week do you engage in moderate to strenuous exercise (like a brisk walk)? 0 days 12/09/2023 On average, how many minutes do you engage in exercise at this level? 0 min 12/09/2023 Hunger Vital Sign Answer Date Recorded Within the past 12 months, y ou worried that your food would run out before you got the money to buy more. Never true 12/09/19 24 Within the past 12 months, t he food you bought just didn't last and you didn't have money to get more. Never true 12/09/2023 PRAPARE - Transportation Answer Date Re corded In the past 12 months, has l ack of transportation kept you from medical appointments or from getting medications? Patient declined 12/09/2023 In the past 12 months, has l ack of transportation kept you from meetings, work, or from getting things needed for daily living? Patient declined 12/09/2023 Housing Stability Vital Sign Answer Gio [...] place to sleep or slept in a snf (including now)? No 12/09/2023 Education Answer Date Recorded What is the [...] on file documented as of this encounter Miscellaneous Notes * Telephone Encounter - Sabrina Beverly RN - 08/17/2024 2:28 PM CST Refill on file according to last Rx and fill Hx. K STACKER documented in this encounter Plan of Treatment Upcoming Encounters Date Type Department Care Team (Late st Contact Info) Description 02/07/2025 11:30 AM CDT Office Visit [facility] [address] [place] [address] Julia Albarran, PAC [address] [place] [address] 03/28/2025 4:00 PM CDT Office Visit [facility] [address] [place] [address] Julia Albarran, PAC [address] [place] [address] documented as of this encounter Goals Goal Patient Goal Type Associated Problems Recent Progress Patient-Stated? Author Behavioral Health Behavioral Health Yes Dejah Pisano, FEATHER EDGER Note: I have a goal of getting my life and house straight. documented as of this encounter Visit Diagnoses Not on filedocumented in this encounter Additional Health Concerns Assessment Noted Time PHQ-9 Depression Total Score: 0 04/21/20 23 3:45 PM CDT documented as of this encounter Care Teams Bowling Ball Marker Relationship Specialty Start Date End Date Julia Albarran PAC [address] [place] [address] PCP - General Physician Mixing And Molding Machine Operator 12/21/21 Julia Albarran PAC [address] [place] [address] Physician Mixing And Molding Machine Operator Physician Mixing And Molding Machine Operator 12/21/21 Neva Krishnamurthy APRN, SINGEING TORCH OPERATOR [address] [place] [address] Nurse Practitioner Advanced Practice Nurse 12/24/22 documented as of this encounter
--- OUTSIDE RECORDS SUMMARY | 2024-12-21 01:03 | XMS_ITS | CCD ---
Author Name Interface, H6Svevknc lity Address [place] [address] [facility] Address [place] [address] Care Team Providers Care Wedding Florist Name Role Phone Yaw Crain Unavailable Unavailable Reason for Visit Functional Status Medications Problems Social History
--- OUTSIDE RECORDS SUMMARY | 2024-12-21 01:03 | XMS_ITS | Encounter Summary ---
Author Organization [facility] Address [address] [place] [address] Phone Care Team Providers Care Executive Administrator Name Role Phone Bela Albarrana Marilayne GUTIÉRREZ Unavailable [phone] Julia Albarran Primary Care Provider + Neva Krishnamurthy APRN, REHABILITATOR Unavailable Reason for Visit * Reason Comments Medication Refill Encounter Details Date Type Department Care Team (Late st Contact Info) Description 03/21/2023 Refill [facility] [place] [address] [place] [address] Neva Krihsnamurthy APRN, REHABILITATOR [address] [place] [address] Medication Refill Social History Tobacco Use Types Packs/Day Years Used Date Smoking Tobacco: Never Smokeless Tobacco: Never Alcohol Use Standard Drinks/Week Comments Not Currently 0 (1 standard drink = 0.6 oz pur e alcohol) PHQ-2 Answer Date Recorded Total Score - Questions 1-9 0 08/0 10/2022 Education Answer Date Recorded What is the [...] suspected to have Coronavirus/COVID-19? No / Unsure 03/24/2023 1:59 PM CDT documented as of this encounter Functional Status * Question Answer Date of Assessment Author Little interest or pleasure in doing things Not at all 03/24/2023 3:00 PM CDT Stefanie Bowie C MA Feeling down, depressed, or hopeless Not at all 03/24/2023 3:00 PM CDT Stefanie Bowie C MA * Over the past 2 weeks, how often have you been bothered by any of the following problems? Question Answer Date of Assessment Author Patient Health Questionnaire -2 Score 0 03/24/2023 3:00 PM CDT Stefanie Bowie C MA documented as of this encounter Miscellaneous Notes * Telephone Encounter - Rachel Castillo RN - 03/21/2023 1:50 PM CDT Medication failed the protocol, provider to review and approve the medication order if appropriate. Requested Prescriptions Pending Prescriptions Disp Refills ondansetron (ZOFRAN-ODT) 4 MG TABLET DISPERSIBLE [Pharmacy Med Name: ONDANSETRON ODT 4MG ODT TABLETDISPERSE] 20 Tablet 0 Sig: DISSOLVE 1 TABLET BY MOUTH EVERY 8 HOURS NEEDED FOR NAUSEA - 1ST LINE. Not Delegated - 5-HT3 Antagonists Protocol Failed - 03/21/2023 1:28 PM Failed - This refill cannot be delegated Passed - Visit with relevant provider in past 12 months or upcoming 90 days Recent Visits Date Type Provider Dept 01/12/23 Telemedicine Julia Albarran PAC [facility] [place] 12/24/22 Office Visit Neva Krishnamurthy APRN, REHABILITATOR [facility] 07/14/22 Office Visit Nereida Powers MD [facility] [place] 04/21/22 Office Visit Julia Albarran PAC [facility] [place] Showing recent visits within past 365 days and meeting all other requirements Future Appointments No visits were found meeting these conditions. Showing future appointments within next 90 days and meeting all other requirements documented in this encounter Plan of Treatment Upcoming Encounters Date Type Department Care Team (Late st Contact Info) Description 02/07/2025 11:30 AM CDT Office Visit [facility] [address] [place] [address] Julia Albarran, PAC [address] [place] [address] 03/28/2025 4:00 PM CDT Office Visit [facility] [address] [place] [address] Julia Albarran, PAC [address] [place] [address] documented as of this encounter Visit Diagnoses Diagnosis Vomiting, unspecified vomiting type, unspecified whether nausea present documented in this encounter Care Teams Executive Administrator Relationship Specialty Start Date End Date Julia Albarran PAC [address] [place] [address] PCP - General Physician E Learning Manager 12/21/21 Julia Albarran PAC [address] [place] [address] Physician E Learning Manager Physician E Learning Manager 12/21/21 Neva Krishnamurthy APRN, REHABILITATOR [address] [place] [address] Nurse Practitioner Advanced Practice Nurse 12/24/22 documented as of this encounter
--- OUTSIDE RECORDS SUMMARY | 2024-12-21 01:03 | XMS_ITS | Encounter Summary ---
Author Organization [facility] Address [address] [place] [address] Phone Care Team Providers Care Telephone Lines Repairer Name Role Phone Julia Albarran PAC Unavailable [phone] Julia Albarran PAC Primary Care Provider + Neva Krishnamurthy APRN, SECURITY FLEX OFFICER Unavailable Reason for Visit * Reason Comments Medication Refill Encounter Details Date Type Department Care Team (Late st Contact Info) Description 12/27/2023 Refill [facility] [address] [place] [address] Julia Albarran, PAC [address] [place] [address] Medication Refill Social History Tobacco Use Types Packs/Day Years Used Date Smoking Tobacco: Never Smokeless Tobacco: Never Alcohol Use Standard Drinks/Week Comments Not Currently 0 (1 standard drink = 0.6 oz pur e alcohol) [facility] Utilities Answer Date Recorded In the past 12 months has [employer] electric, gas, oil, or water company threatened [...] Never 12/09/2023 How often do you attend restoration or yarsanism serv ices? Never 12/09/2023 Do you belong to any clubs o r organizations such as restoration groups, unions, fraternal or athletic groups, or [...] Total Score - Questions 1-9 0 03/24 [facility] - Occupational Stress [...] Telephone Encounter - Sabrina Beverly RN - 12/27/2023 4:31 PM CDT Medication failed the protocol, provider to review and approve the medication order if appropriate. Requested Prescriptions Pending Prescriptions Disp Refills escitalopram (LEXAPRO) 20 MG Tablet [Pharmacy Med Name: ESCITALOPRAM OXALATE 20MG TABLET] 90 Tablet1 Sig: TAKE 1 TABLET BY MOUTH DAILY. SSRI (6 Month Refill Only) Protocol Failed - 12/27/2023 3:47 PM Failed - Has an encounter in the past 6 months with a depression, anxiety, adjustment disorder, OCD, or PTSD visit diagnosis Passed - Visit with relevant provider in past 6 months or upcoming 90 days Recent Visits Date Type Provider Dept 12/09/23 Telemedicine Julia Albarran PAC [facility] 11/24/23 Office Visit Black Brewer APRN, SECURITY FLEX OFFICER [facility] [place] Showing recent visits within past 182 days and meeting all other requirements Future Appointments Date Type Provider Dept 02/29/24 Appointment Julia Albarran PAC [facility] Showing future appointments within next 90 days and meeting all other requirements Passed - Patient has established therapy with SSRI for at least 6 months oxybutynin (DITROPAN-XL) 5 MG TABLET SR 24 HR [Pharmacy Med Name: OXYBUTYNIN CHLORIDE ER 5MG ER TABLET ER 24HR] 90 Tablet 1 Sig: TAKE 1 TABLET BY MOUTH DAILY. Urinary Anticholinergics Protocol Passed - 12/27/2023 3:47 PM Passed - Visit with relevant provider in past 12 months or upcoming 90 days Recent Visits Date Type Provider Dept 12/09/23 Telemedicine Julia Albarran PAC [facility] 11/24/23 Office Visit Black Brewer APRN, SECURITY FLEX OFFICER [facility] 04/21/23 Office Visit Julia Albarran, MARLA [facility] 03/24/23 Office Visit Julia Albarran, PAC [facility] 01/12/23 Telemedicine Julia Albarran, PAC [facility] Showing recent visits within past 365 days and meeting all other requirements Future Appointments Date Type Provider Dept 02/29/24 Appointment Julia Albarran PAC [facility] Showing future appointments within next 90 days and meeting all other requirements Passed - GFR greater than or equal to 30 in past 12 months GFR, EST. NONAFRICAN Date Value Ref Range Status 04/21/2023 >60 >=60 Final documented in this encounter Plan of Treatment Upcoming Encounters Date Type Department Care Team (Late st Contact Info) Description 02/07/2025 11:30 AM CDT Office Visit [facility] [address] [place] [address] Julia Albarran PAC [address] [place] [address] 03/28/2025 4:00 PM CDT Office Visit [facility] [address] [place] [address] Julia Albarran PAC [address] [place] [address] documented as of this encounter Visit Diagnoses Not on filedocumented in this encounter Additional Health Concerns Assessment Noted Time PHQ-9 Depression Total Score: 0 04/21/20 23 3:45 PM CDT documented as of this encounter Care Teams Telephone Lines Repairer Relationship Specialty Start Date End Date Julia Albarran PAC [address] [place] [address] PCP - General Physician Santa'S Helper 12/21/21 Julia Albarran PAC [address] [place] [address] Physician Santa'S Helper Physician Santa'S Helper 12/21/21 Neva Krishnamurthy APRN, SECURITY FLEX OFFICER [address] [place] [address] Nurse Practitioner Advanced Practice Nurse 12/24/22 documented as of this encounter
--- OUTSIDE RECORDS SUMMARY | 2024-12-21 01:03 | XMS_ITS | Referral Summary ---
Author Organization [facility] Address [address] [place] [address] Care Team Providers Care Bench Worker Name Role Phone Julia Albarran Primary Care Provider + [phone] Gardenia Mcneal MD Unavailable Allergies Active Allergy Reactions Criticality Noted Date Comments Fentanyl Unknown 03/09/2022 unable to wake up Fentanyl (Bulk) Other (See comments) Low 12/21/2021 unable to wake up Iodinated Contrast Media Shortness of breath,Chest tightness High 11/11/2023 Morphine Hives Medium 03/09/2022 2022=> patient states she can have Morphine as long as she has Benadryl with it. Penicillins Anaphylaxis High 03/09/2022 Pipobroman Other (See comments) Low 02/02/2022 Pt states she wont wake up Midazolam Unknown 03/09/2022 Medications meloxicam (MOBIC) 15 mg tablet Take 1 tablet (15 mg total) by mouth daily as needed for pain Active escitalopram (LEXAPRO) 20 mg tabletIndications :Anxiety with Depression Take 1 tablet (20 mg total) by mouth nightly Active oxybutynin XL (DITROPAN-XL) 5 mg 24 hr tabletIndications :Bladder Hyperactivity Take 1 tablet (5 mg total) by mouth nightly Active pantoprazole DR (PROTONIX) 40 mg EC tablet Take 1 tablet (40 mg total) by mouth 2 (two) times a day before breakfast and dinner 2 Active pregabalin (LYRICA) 75 mg capsuleIndication s:Fibromyalgia Take 2 capsules (150 mg total) by mouth nightly Active ergocalciferol (VITAMIN D) 50,000 unit capsuleIndication s:every tuesday Take 1 capsule (50,000 Units total) by mouth once a week 2 Active traMADoL (ULTRAM) 50 mg tablet prn 3 Active cyclobenzaprine (FLEXERIL) 10 mg tablet prn 3 Active metoclopramide (REGLAN) 5 mg tablet Take 1 tablet (5 mg total) by mouth 4 (four) times a day before meals and nightly 3 Active acetaminophen (TYLENOL) 325 mg tablet Take 2 tablets (650 mg total) by mouth every 6 (six) hours as needed for pain or headaches 30 tablet 4 Active simethicone (MYLICON) 80 mg chewable tablet Take 2 tablets (160 mg total) by mouth 3 (three) times a day as needed for flatulence (Indigestion) 30 tablet 4 Active Active Problems Problem Noted Date Diagnosed Date Chest pressure 11/12/2023 Pulmonary nodules 11/12/2023 Hypokalemia 11/12/2023 Thyroid nodule 11/12/2023 Chest pain, unspecified type 11/12/2023 Esophagitis 11/11/2023 Nausea and vomiting 05/02/2023 History of colon polyps 05/02/2023 Encounter for screening colonoscopy 05/02/2023 Syncope, cardiogenic 04/04/2023 Assessment & Plan (2023 11:34 AM CDT): Syncopal episode, suspect orthostatic in setting of UTI however pt mentions she is chronically dizzy and had loop recorder placed in 2013 for work up. - Workup with leukocytosis WBC 11k. CTH wo fracture or ICH. UA suggestive of UTI WBC 20, nitrite +ve - no records in chart or CareEverywhere past 2021 so unable to see loop recorder results from 2013 - TTE ordered given near syncopal episode in restroom 8/15 AM, unremarkable - s/p IVF, orthostatics negative - Treatment of UTI as mentioned elsewhere - Telemetry monitoring, no acute events so far - Fall precautions UTI (urinary tract infection) 04/04/2023 Assessment & Plan (04/05/2023 1:18 PM CDT): UA suggestive of UTI. Has been feeling generalized fatigued since yesterday. WBC 11k. - no urine culture sent - Continue Macrobid Lumbar herniated disc 2022 Intervertebral disc disorder with radiculopathy of lumbar region 03/26/2022 Overview (03/26/2022): Added automatically from request for surgery [id number] Chronic gastroesophageal reflux disease 02/03/20 Assessment & Plan (04/05/2023 1:14 PM CDT): - cont PPI BID Fibromyalgia 12/21/2021 Assessment & Plan (04/04/2023 7:25 PM CDT): - Continue home lexapro, lyrica and PRN flexeril Anxiety and depression 12/21/2021 Immunizations Immunization Administration Dates Next Due Influenza, Quadrivalent, Spl it, Preservative Free, Intramuscular 05/27/2022 Novavax COVID-19 5MCG/0.5ML Vaccine 07/01/2023 Pfizer SARS-CoV-2 Monovalent Vaccination (12+ Yrs) PURPLE 08/04/2021,11/07/2020,10/21/2020 Social History Tobacco Use Types Packs/Day Years Used Date Smoking Tobacco: Never Smokeless Tobacco: Never Tobacco Cessation:Counseling Given: Not Answered AUDIT-C Answer Date Recorded Frequency of Alcohol [...] Sign Reading Time Taken Comments Blood Pressure 138/88 11/15/2023 11:00 AM CDT Pulse 56 11/15/2023 11:00 AM CDT Temperature 36.5 C (97.7 F) 11/15/2023 11:00 AM CDT Respiratory Rate 18 11/15/2023 11:0 0 AM CDT Oxygen Saturation 97% 11/15/2023 11: 00 AM CDT Inhaled Oxygen Concentration - - Weight 91.9 kg (202 lb 11.1 oz) 11/12/2023 9:45 AM CDT Height 166.4 cm (5' 5.5 ) 11/12/2023 9:45 AM CDT Body Mass Index 33.22 11/12/2023 9:45 AM CDT Plan of Treatment Not on file Procedures Procedure Name Priority Date/Time Associated Diagnosis Comments COLONOSCOPY 07/08/2023 10:45 AM REGULATORY AND COMPLIANCE TECHNICIAN from Last 3 Months or Most Recently Relevant to Health Maintenance Results * COLONOSCOPY (07/08/2023 10:45 AM REGULATORY AND COMPLIANCE TECHNICIAN) Anatomical Region Laterality Modality Other Narrative Procedure Note Broderick Cerda MD - 07/08/2023 10:45 AM [facility] Patient Name: Rachel Chaudhry Procedure Date: 07/08/2023 10:45AM Date of : 1960 Admit Type: Outpatient Age: 63 Gender: Female Attending MD: Broderick Cerda M.D. Room: [facility] ENDOSCOPY ROOM 3 Note Status: Finalized Procedure: Colonoscopy Indications: High risk colon cancer surveillance: Personalhistory of colonic polyps Referring MD: Yris Healy M.D. Providers: Broderick Cerda M.D. Medicines: Monitored Anesthesia Care Complications: No immediate complications. Estimated Blood Loss: Estimated blood loss: none. Procedure: Pre-Anesthesia Assessment: - Immediately prior to administration ofmedications, the patient was re-assessed for adequacy to receive sedatives. - The risks and benefits of the procedure and the sedation options and risks were discussed with the patient. All questions were answered and informed consent was obtained. The benefits, risks and alternatives of theprocedure and sedation were discussed and informed consentwas obtained. All questions were answered. Please referto the signed informed consent document in the medical record. The scope was passed under direct vision.The [id number] endoscope was introduced through the anus and advanced to the cecum, identified by appendiceal orifice and ileocecal valve. The colonoscopy was performed without difficulty. The patient tolerated the procedure well. The qualityof the bowel preparation was good. The bowelpreparation used was GoLYTELY. Findings: The perianal and digital rectal examinations were normal. A 7 mm polyp was found in the sigmoid colon. The polyp was sessile.The polyp was removed with a cold snare. Resection and retrieval were complete. To close a defect after polypectomy, two hemostatic clipswere successfully placed (MR conditional). There was no bleeding at theend of the procedure. Small internal hemorrhoids seen on retroflexion Impression: - Single sigmoid polyp resected and retrieved - Internal hemorrhoids Recommendation: - Await pathology results. Electronically Signed by Broderick Cerda M.D. Broderick Cerda M.D. 07/08/2023 11:06:04 AM . Number of Addenda: 0 Note Initiated On: 07/08/2023 10:45 AM Recognized by the [employer] for promoting quality in endoscopy Broderick Cerda MD ENDOSCOPY PROCEDURES F inal Result from Last 3 Months or Most Recently Relevant to Health Maintenance Insurance [facility] Advance Directives For more information, please contact: [phone] * Full Code (Latest Code Status on File) Date Activated Date Inactivated Comments 11/12/2023 3:37 AM 11/15/2023 4:57 PM * Full Code Date Activated Date Inactivated Comments 07/08/2023 9:53 AM 07/08/2023 4:27 PM * Full Code Date Activated Date Inactivated Comments 04/04/2023 9:00 PM 2023 4:12 PM Care Teams Bench Worker Relationship Specialty Start Date End Date Julia Albarran PA [address] [address] PCP - General Security Systems Administrator 01/22/22 [place] [id number] [address] Consulting Physician Gastroenterology 11/15/23
--- OUTSIDE RECORDS SUMMARY | 2024-12-21 01:03 | XMS_ITS | Encounter Summary ---
Author Organization [facility] Address [address] [place] [address] Phone Care Team Providers Care Quartz Orientator Name Role Phone Julia Albarran PAC Unavailable [phone] Julia Albarran PAC Primary Care Provider + Neva Krishnamurthy APRN, SHOE TURNER Unavailable Reason for Visit * Reason Comments Medication Refill Encounter Details Date Type Department Care Team (Late st Contact Info) Description 03/27/2024 Refill [facility] [address] [place] [address] Julia Albarran, PAC [address] [place] [address] Medication Refill Social History Tobacco Use Types Packs/Day Years Used Date Smoking Tobacco: Never Smokeless Tobacco: Never Alcohol Use Standard Drinks/Week Comments Not Currently 0 (1 standard drink = 0.6 oz pure alcohol) quit drinking in 2008 or 2009, was a daily drinker since 1998 [facility] Utilities Answer Date Recorded In the past 12 months has [employer], gas, oil, or water [employer] threatened to shut off services in your home? No 12/09/2023 Social Connection and Isolation Panel [NHANES] A nswer Date Recorded In a typical week, how many times do you talk on the phone with family, friends, or neighbors? Never 12/09/2023 How often do you get together with friends or re latives? Never 12/09/2023 How often do you attend yarsani or advent serv ices? Never 12/09/2023 Do you belong to any clubs o r organizations such as yarsani groups, unions, fraternal or athletic groups, or [...] Score - Questions 1-9 0 03/24 [facility] of Occupat ional [facility] - Occupational Stress Questionnaire Answer Date Recorded [...] place to sleep or slept in a fci (including now)? No 12/09/2023 Education Answer Date [...] Telephone Encounter - Sabrina Beverly RN - 03/27/2024 4:27 PM CDT Should have refill on file according to last Rx documented in this encounter Plan of Treatment Upcoming Encounters Date Type Department Care Team (Late st Contact Info) Description 02/07/2025 11:30 AM CDT Office Visit [facility] [address] [place] [phone] Julia Albarran, MARLA [address] [place] [address] 03/28/2025 4:00 PM CDT Office Visit [facility] [address] [place] [address] Julia Albarran, PAC [address] [place] [address] documented as of this encounter Goals Goal Patient Goal Type Associated Problems Recent Progress Patient-Stated? Author Behavioral Health Behavioral Health Yes Dejah Pisano, ADDING MACHINE SERVICER Note: I have a goal of getting my life and house straight. documented as of this encounter Visit Diagnoses Not on filedocumented in this encounter Additional Health Concerns Assessment Noted Time PHQ-9 Depression Total Score: 0 04/21/20 3:45 PM CDT documented as of this encounter Care Teams Quartz Orientator Relationship Specialty Start Date End Date Julia Albarran PAC [address] [place] [address] PCP - General Physician Calendering Supervisor 12/21/21 Julia Albarran PAC [address] [place] [address] Physician Calendering Supervisor Physician Calendering Supervisor 12/21/21 Neva Krishnamurthy APRN, SHOE TURNER [address] [place] [address] Nurse Practitioner Advanced Practice Nurse 12/24/22 documented as of this encounter
--- OUTSIDE RECORDS SUMMARY | 2024-12-21 01:03 | XMS_ITS | Encounter Summary ---
Author Organization [facility] Address [address] [place] [address] Phone Care Team Providers Care Drug Abuse Treatment Specialist Name Role Phone VidalJulia jarvis MARLA Unavailable [phone] Julia Albarran PAC Primary Care Provider + Neva Krishnamurthy APRN, PASTER HAT LINING Unavailable Reason for Visit * Reason Comments Medication Refill Encounter Details Date Type Department Care Team (Late st Contact Info) Description 02/03/2024 Refill [facility] - [place] [address] [place] [address] Black Brewer, ADDIE, PASTER HAT LINING [address] [address] Medication Refill Social History Tobacco Use Types Packs/Day Years Used Date Smoking Tobacco: Never Smokeless Tobacco: Never Alcohol Use Standard Drinks/Week Comments Not Currently 0 (1 standard drink = 0.6 oz pur e alcohol) [facility] Utilities Answer Date Recorded In the past 12 months has [employer], gas, oil, or water company threatened [...] Never 12/09/2023 How often do you attend pentecostal or lutheran serv ices? Never 12/09/2023 Do you belong to any clubs o r organizations such as pentecostal groups, unions, fraternal or athletic groups, or [...] Total Score - Questions 1-9 0 03/24 [facility] of Occupat ional Health - Occupational Stress [...] place to sleep or slept in a [place] facility (including now)? No 12/09/2023 Education Answer Date [...] Telephone Encounter - Sabrina Beverly RN - 02/03/2024 4:28 PM CDT Medication failed the protocol, provider to review and approve the medication order if appropriate. Requested Prescriptions Pending Prescriptions Disp Refills metoclopramide (REGLAN) 5 MG Tablet [Pharmacy Med Name: METOCLOPRAMIDE HCL 5MG TABLET] 90 Tablet 0 Sig: Take 1 Tablet by mouth 4 times daily (before meals and nightly). Not Delegated - GI Stimulants Protocol Failed - 02/03/2024 2:41 PM Failed - This refill cannot be delegated Passed - Visit with relevant provider in past 12 months or upcoming 90 days Recent Visits Date Type Provider Dept 01/17/24 Office Visit Makenna Quinonez, [facility] [place] 12/09/23 Telemedicine Julia Albarran, MARLA [facility] 11/24/23 Office Visit Black Brewer APRN, SREE [facility] [place] 04/21/23 Office Visit Julia Albarran PAC [facility] [place] 03/24/23 Office Visit FriJulia jarvis PAC [facility] Showing recent visits within past 365 days and meeting all other requirements Future Appointments Date Type Provider Dept 02/29/24 Appointment Julia Albarran PAC [facility] Showing future appointments within next 90 days and meeting all other requirements documented in this encounter Plan of Treatment Upcoming Encounters Date Type Department Care Team (Late st Contact Info) Description 02/07/2025 11:30 AM CDT Office Visit [facility] [address] [place] [address] Julia Albarran PAC [address] [place] [address] 03/28/2025 4:00 PM CDT Office Visit [facility] [address] [place] [address] Julia Albarran PAC [address] [place] [address] documented as of this encounter Visit Diagnoses Not on filedocumented in this encounter Additional Health Concerns Assessment Noted Time PHQ-9 Depression Total Score: 0 04/21/20 23 3:45 PM CDT documented as of this encounter Care Teams Drug Abuse Treatment Specialist Relationship Specialty Start Date End Date Julia Albarran PAC [address] [place] [address] PCP - General Physician Drying Tumbler Operator 12/21/21 Julia Albarran PAC [address] [place] [address] Physician Drying Tumbler Operator Physician Drying Tumbler Operator 12/21/21 Neva Krishnamurthy APRN, PASTER HAT LINING [address] [place] [address] Nurse Practitioner Advanced Practice Nurse 12/24/22 documented as of this encounter
--- OUTSIDE RECORDS SUMMARY | 2024-12-21 01:03 | XMS_ITS | Encounter Summary ---
Author Organization [facility] Address [address] [place] [address] Phone Care Team Providers Care Blacksmith Farm Name Role Phone Julia Albarran PAC Unavailable [phone] Julia Albarran PAC Primary Care Provider + Neva Krishnamurthy APRN, SAWMILL WORKER Unavailable Reason for Visit * Reason Comments Medication Refill Encounter Details Date Type Department Care Team (Late st Contact Info) Description 12/01/2023 Refill [facility] [address] [place] [address] Julia Albarran, PAC [address] [place] [address] Medication Refill Social History Tobacco Use Types Packs/Day Years Used Date Smoking Tobacco: Never Smokeless Tobacco: Never Alcohol Use Standard Drinks/Week Comments Not Currently 0 (1 standard drink = 0.6 oz pur e alcohol) [facility] Utilities Answer Date Recorded In the past 12 months has [employer], gas, oil, or water company threatened to shut off services in your home? No 11/22/2023 Social Connection and Isolat ion Panel [NHANES] Answer Date Recorded In a typical week, how many times do you talk on the phone with family, friends, or neighbors? More than three times a week 11/22/2023 How often do you get togethe r with friends or relatives? Never 11/22/2023 How often do you attend chur ch or amish services? Never 11/22/2023 Do you belong to any clubs o r organizations such as religion groups, unions, fraternal or athletic groups, or school groups? No 11/22/2023 How often do you attend meet ings of the clubs or organizations you belong to? Never 11/22/2023 Are you , , di vorced, , never , or living with a partner? Living with partner 11/22/2023 AUDIT-C Answer Date Recorded Frequency of Alcohol Consumption Not on file 11/22/2023 Q2: How many drinks containi ng alcohol do you have on a typical day when you are drinking? Patient does not drink Frequency of Binge Drinking Not on file 09/2023 PHQ-2 Answer Date Recorded Total Score - Questions 1-9 0 03/24 [facility] of Occupat ional Health - Occupational Stress Questionnaire Answer Date Recorded Do you feel stress - tense, restless, nervous, or anxious, or unable to sleep at night because your mind is troubled all the time - these days? Very much 11/22/2023 Exercise Vital Sign Answer Date Recorde d On average, how many days pe r week do you engage in moderate to strenuous exercise (like a brisk walk)? 3 days 11/22/2023 On average, how many minutes do you engage in exercise at this level? 30 min 11/22/2023 Hunger Vital Sign Answer Date Recorded Within the past 12 months, y ou worried that your food would run out before you got the money to buy more. Sometimes true Within the past 12 months, t he food you bought just didn't last and you didn't have money to get more. Sometimes true 09/2023 PRAPARE - Transportation Answer Date Re corded In the past 12 months, has l ack of transportation kept you from medical appointments or from getting medications? No 09/2023 In the past 12 months, has l ack of transportation kept you from meetings, work, or from getting things needed for daily living? No 11/22/2023 Housing Stability Vital Sign Answer Gio e Recorded In the last 12 months, was t here a time when you were not able to pay the mortgage or rent on time? No 11/22/2023 In the last 12 months, how many places have you lived? 1 11/22/2023 In the last 12 months, was t here a time when you did not have a steady place to sleep or slept in a [facility] (including now)? No 11/22/2023 Education Answer Date Recorded What is the [...] Telephone Encounter - Sabrina Beverly RN - 12/02/2023 8:45 AM CDT Images from the original note were not included. Name from pharmacy: MELOXICAM 15MG TABLET Will file in chart as: meloxicam (MOBIC) 15 MG Tablet The original prescription was discontinued on 11/24/2023 by Black Brewer APRN, SAWMILL WORKER for thefollowing reason: Contraindication. documented in this encounter Plan of Treatment Upcoming Encounters Date Type Department Care Team (Late st Contact Info) Description 02/07/2025 11:30 AM CDT Office Visit [facility] [address] [place] [address] Julia Albarran, PAC [address] [place] [address] 03/28/2025 4:00 PM CDT Office Visit [facility] [address] [place] [address] Julia Albarran, PAC [address] [place] [address] documented as of this encounter Visit Diagnoses Not on filedocumented in this encounter Additional Health Concerns Assessment Noted Time PHQ-9 Depression Total Score: 0 04/21/20 23 3:45 PM CDT documented as of this encounter Care Teams Blacksmith Farm Relationship Specialty Start Date End Date Julia Albarran PAC [address] [place] [address] PCP - General Physician Dimpling Machine Operator 12/21/21 Julia Albarran PAC [address] [place] [address] Physician Dimpling Machine Operator Physician Dimpling Machine Operator 12/21/21 Neva Krishnamurthy APRN, SAWMILL WORKER [address] [place] [address] Nurse Practitioner Advanced Practice Nurse 12/24/22 documented as of this encounter
--- OUTSIDE RECORDS SUMMARY | 2024-12-21 01:03 | XMS_ITS | Encounter Summary ---
Author Organization [facility] Address [address] [place] [address] Phone Care Team Providers Care Newscast Producer Name Role Phone Julia Albarran MARLA Unavailable [phone] Avis Mariamakatie GUTIÉRREZ Primary Care Provider + Neva Krishnamurthy APRN, ALUM PLANT SUPERVISOR Unavailable Reason for Visit * Reason Comments Medication Refill Encounter Details Date Type Department Care Team (Late st Contact Info) Description 08/07/2024 Refill [facility] [address] [place] [address] Maninder Tuhrman APRN, ALUM PLANT SUPERVISOR [address] [place] [address] Medication Refill Social History Tobacco Use Types Packs/Day Years Used Date Smoking Tobacco: Never Smokeless Tobacco: Never Alcohol Use Standard Drinks/Week Comments Not Currently 0 (1 standard drink = 0.6 oz pure alcohol) quit drinking in 2008 or 2009, was a daily drinker since 1998 [facility] Utilities Answer Date Recorded In the past 12 months has [employer], gas, oil, or water [employer] threatened to shut off services in your home? No 12/09/2023 Social Connection and Isolation Panel [NHANES] A nswer Date Recorded In a typical week, how many times do you talk on the phone with family, friends, or neighbors? Never 12/09/2023 How often do you get together with friends or re latives? Never 12/09/2023 How often do you attend presybeterian or buddhism serv ices? Never 12/09/2023 Do you belong to any clubs o r organizations such as presybeterian groups, unions, fraternal or athletic groups, or [...] Total Score - Questions 1-9 0 03/24 [facility] of Occupat ional [facility] - Occupational Stress Questionnaire Answer Date Recorded [...] place to sleep or slept in a halfway (including now)? No 12/09/2023 Education Answer Date [...] as of this encounter Plan of Treatment Upcoming Encounters Date Type Department Care Team (Late st Contact Info) Description 02/07/2025 11:30 AM CDT Office Visit [facility] [address] [place] [address] Julia Albarran, PAC [address] [place] [address] 03/28/2025 4:00 PM CDT Office Visit [facility] [address] [place] [address] Julia Albarran, MARLA [address] [place] [address] documented as of this encounter Goals Goal Patient Goal Type Associated Problems Recent Progress Patient-Stated? Author Behavioral Health Behavioral Health Yes Dejah Pisano, SUPERVISOR FELTING Note: I have a goal of getting my life and house straight. documented as of this encounter Visit Diagnoses Diagnosis Urinary frequency Urinary incontinence, urge Urge incontinence documented in this encounter Additional Health Concerns Assessment Noted Time PHQ-9 Depression Total Score: 0 04/21/20 23 3:45 PM CDT documented as of this encounter Care Teams Newscast Producer Relationship Specialty Start Date End Date Julia Albarran PAC [address] [place] [address] PCP - General Physician Paragliding Instructor 12/21/21 Julia Albarran PAC [address] [place] [address] Physician Paragliding Instructor Physician Paragliding Instructor 12/21/21 Neva Krishnamurthy APRN, ALUM PLANT SUPERVISOR [address] [place] [address] Nurse Practitioner Advanced Practice Nurse 12/24/22 documented as of this encounter
--- OUTSIDE RECORDS SUMMARY | 2024-12-21 01:03 | XMS_ITS | Clinical Summary ---
Author Organization [facility] Address [address] [place] [id number] Care Team Providers Care Brassiere Cup Mold Cutter Name Role Phone Julia Albarran Primary Care Provider + [phone] Gardenia Mcneal MD Unavailable [phone] Allergies Active Allergy Reactions Criticality Noted Date [...] (03/26/2022): Added automatically from request for surgery [id number] Chronic gastroesophageal reflux disease 02/03/20 Assessment & [...] SARS-CoV-2 Monovalent Vaccination (12+ Yrs) PURPLE 08/04/2021,11/07/2020,10/21/2020 Surgical History Surgery Date Site/Laterality Comments CERVICAL SPINE SURGERY 08/22/2013 - 08/21/2014 CHOLECYSTECTOMY 08/22/1983 - 08/21/1984 TOTAL HIP ARTHROPLASTY 08/22/2014 - 08/21/2015 OVARY SURGERY 08/22/1989 - 08/21/1990 ABDOMINAL SURGERY BACK SURGERY ELBOW SURGERY HAND SURGERY Medical History Medical History Date Comments Fibromyalgia GERD (gastroesophageal reflux disease) Depression Osteopenia Osteoporosis Joint pain Fibromyalgia, primary Fractures GI problem Family History Medical History Relation Name Comments Heart attack Father Heart disease Father Cancer Mother Diabetes Mother Hypertension Mother Relation Name Status Comments Father Mother Social History Tobacco Use Types Packs/Day Years [...] on file Sexual Orientation Not on file Obstetrics History Last Filed Vital Signs Vital Sign Reading [...] 11/12/2023 9:45 AM CDT Plan of Treatment Health Maintenance Due Date Last Done Comments Cervical Cancer Screening 1960 Depression Screening 1960 Hepatitis C Screening 1960 Osteoporosis Screening-Bone Density Scan 1959 Hepatitis B Screening 1977 Well Visit 65+ 2024 Covid-19 Vaccine (2023-2 5 season) 2024 07/01/2023, 08/04/2021, 11/07/2020, Additional history exists Breast Cancer Screening-Mammogram 05/30/2024 023, 05/30/2023 Fall Risk Assessment 11/14/2024 11/15/2023 Influenza Vaccine (Season Ended) 2025 01/13/2024, 06/18/2023, 05/27/2022 Colon Cancer Screening-Colonoscopy 07/08/20332022 DTaP/Tdap/Td Vaccine (2 - Td or Tdap) 09/15/2033 09/15/2023 Pneumococcal vaccine 65+ Completed 07/01/2023 Zoster Vaccine Completed 09/15/2023, 05/22, 06/06/2023 Procedures Procedure Name Priority Date/Time Associated Diagnosis Comments COLONOSCOPY 07/08/2023 10:45 AM SENIOR NET ENGINEER from Last 3 Months or Most Recently Relevant to Health Maintenance Results * COLONOSCOPY (07/08/2023 10:45 AM SENIOR NET ENGINEER) Anatomical Region Laterality Modality Other Narrative Procedure Note Broderikc Cerda MD - 07/08/2023 10:45 AM CST [facility] Patient Name: Rachel Chaudhry Procedure Date: 07/08/2023 10:45AM Date of : 1960 Admit Type: Outpatient Age: 63 Gender: Female Attending MD: Broderick Cerda M.D. Room: [facility] ENDOSCOPY ROOM 3 Note Status: Finalized Procedure: [...] The scope was passed under direct vision.The CF [id number] endoscope was introduced through the anus [...] On: 07/08/2023 10:45 AM Recognized by the [employer] for promoting quality in endoscopy Broderick Cerda MD ENDOSCOPY PROCEDURES F inal Result from Last 3 Months or Most Recently Relevant to Health Maintenance Insurance [facility] [employer] [facility] [employer] Advance Directives For more information, please contact: [phone] * Full Code (Latest Code Status on File) Date Activated Date Inactivated Comments 11/12/2023 3:37 AM 11/15/2023 4:57 PM * Full Code Date Activated Date Inactivated Comments 07/08/2023 9:53 AM 07/08/2023 4:27 PM * Full Code Date Activated Date Inactivated Comments 04/04/2023 9:00 PM 2023 4:12 PM Care Teams Brassiere Cup Mold Cutter Relationship Specialty Start Date End Date Julia Albarran PA 2 [facility] [address] [address] PCP - General Food Counselor 01/22/22 [place] [id number] [place] [address] Consulting Physician Gastroenterology 11/15/23
--- OUTSIDE RECORDS SUMMARY | 2024-12-21 01:03 | XMS_ITS | Encounter Summary ---
Author Organization [facility] Address [address] [place] [address] Phone Care Team Providers Care Legal Recovery Specialist Name Role Phone Julia Albarran PAC Unavailable Julia Albarran PAC Primary Care Provider + Neva Krishnamurthy APRN, TIMBER TRIMMER Unavailable Reason for Visit * Reason Comments Medication Refill Encounter Details Date Type Department Care Team (Late st Contact Info) Description 10/22/2023 Refill [facility] - Family Medicine [facility] [address] [place] [address] Julia Albarran, PAC [address] [place] [address] Medication Refill Social History Tobacco Use Types Packs/Day Years Used Date Smoking Tobacco: Never Smokeless Tobacco: Never Alcohol Use Standard Drinks/Week Comments Not Currently 0 (1 standard drink = 0.6 oz pur e alcohol) PHQ-2 Answer Date Recorded Total Score - Questions 1-9 0 03/24 Education Answer Date Recorded What is the [...] Telephone Encounter - Sabrina Beverly RN - 10/24/2023 10:02 AM CST Medication failed the protocol, provider to review and approve the medication order if appropriate. Requested Prescriptions Pending Prescriptions Disp Refills pregabalin (LYRICA) 75 MG Capsule [Pharmacy Med Name: PREGABALIN 75MG CAPSULE] 90 Capsule 0 Sig: TAKE 2 CAPSULES BY MOUTH NIGHTLY. Not Delegated - Anticonvulsants Excluding Benzodiazepines Protocol Failed - 10/22/2023 12:13 PM Failed - This refill cannot be delegated Passed - Visit with relevant provider in past 12 months or upcoming 90 days Recent Visits Date Type Provider Dept 04/21/23 Office Visit Julia Albarran PAC [facility] 03/24/23 Office Visit Julia Albarran PAC [facility] 01/12/23 Telemedicine Julia Albarran PAC [facility] Showing recent visits within past 365 days and meeting all other requirements Future Appointments Date Type Provider Dept 11/10/23 Appointment Julia Albarran PAC [facility] Showing future appointments within next 90 days and meeting all other requirements IDER RELATIONS CONSULTANT documented in this encounter Plan of Treatment Upcoming Encounters Date Type Department Care Team (Late st Contact Info) Description 02/07/2025 11:30 AM CDT Office Visit [facility] [address] [place] [address] Julia Albarran PAC [address] [place] [address] 03/28/2025 4:00 PM CDT Office Visit [facility] [address] [facility] [place] [address] Julia Albarran PAC [address] [place] [address] documented as of this encounter Visit Diagnoses Diagnosis Fibromyalgia Mylagia and myositis, unspecified documented in this encounter Additional Health Concerns Assessment Noted Time PHQ-9 Depression Total Score: 0 04/21/20 23 3:45 PM CDT documented as of this encounter Care Teams Legal Recovery Specialist Relationship Specialty Start Date End Date Julia Albarran PAC [address] [place] [address] PCP - General Physician President Ceo & Founder 12/21/21 Julia Albarran PAC [address] [place] [address] Physician President Ceo & Founder Physician President Ceo & Founder 12/21/21 Neva Krishnamurthy APRN, TIMBER TRIMMER [address] [place] [address] Nurse Practitioner Advanced Practice Nurse 12/24/22 documented as of this encounter
--- NOTE | 2024-12-21 07:15 | WPDHPUPDATE1 ---
History and Physical Update Update Date/Time: 12/21/24 07:15 History and Physical has been reviewed, including an updated exam of the patient. There are NO changes in the patient's condition. Risks, benefits, and alternatives have been discussed and questions answered. Patient agrees to proceed with procedure.
[2024-12-21 08:51] VITALS: BP 140/74; PULSE 57; RESP 16; TEMP 36.4; O2SAT 99
[2024-12-21] MEDS: LACTATED RINGERS 1,000 ML 30 ML IV CONT ×2 (09:33→11:52)
--- NOTE | 2024-12-21 09:44 | WPDANESEPPF ---
Anes - Initial Pre Proc Eval Procedure: Operation Date: 12/21/24 10:45 Proposed Procedures p Urethral Sling - Jn Parks MD Date/Time: 12/21/24 09:44 Surgeon: Jn Parks MD Pre Op Diagnosis: stress incont Patient Data Age: 64 Gender: F Height: 1.63 m Weight: 92 kg Allergies Allergy/AdvReac Type Severity Reaction Status Date / Time amoxicillin Allergy Intermediate SOB, rash, Verified 12/07/24 11:34 swelling Penicillins Allergy Intermediate Rash, SOB, Verified 12/07/24 11:34 Swelling fentanyl AdvReac Intermediate unknown Verified 12/07/24 11:34 Home Medications ?Medication ?Instructions ?Recorded ?Confirmed ?Type escitalopram oxalate 20 mg tablet 20 mg PO DAILY PRN anxiety 12/07/24 12/07/24 History metoclopramide HCl 5 mg tablet 5 mg PO QID 12/07/24 12/07/24 History pregabalin 150 mg capsule 150 mg PO HS 12/07/24 12/07/24 History solifenacin 10 mg tablet 10 mg PO DAILY 12/07/24 12/07/24 History Patient hx anesthesia problems: none Family hx anesthesia problems: none Results Review: All pre-operative results and documents have been reviewed as part of the pre-operative evaluation. [facility] Past Medical History Medical History (Updated 12/21/24 @ 09:48 by Ciro Ovalle DO) Implantable loop recorder present Fibromyalgia Surgical History Surgical History (Updated 12/21/24 @ 09:48 by Ciro Ovalle DO) History of Shant-en-Y gastric bypass 2006 Social History Social History Smoking status: Never smoker Alcohol intake: never Substance use: never Living arrangements: with family Additional living arrangements comments: Spiritual care concerns: No Anes - Eval Final PreProcedure Day of Procedure 12/21/24 09:44 Patient weight: obese Heart: regular rate and rhythm Lungs: clear to auscultation Airway: Mallampati scale class II Neurological: alert and oriented Last oral intake: >/= 8 hours ASA classification: III Emergent: no Anesthetic plan: proceed Anesthesia type and monitoring: general GIVS and standard monitoring Results Review: All pre-operative results and documents have been reviewed as part of the pre-operative evaluation. Informed Consent: The patient's anesthetic plan and its attendant risks and benefits were discussed with the patient/family/POA. Questions were solicited and answers provided to the satisfaction of the patient/family/POA.
[2024-12-21] MEDS: ceFAZolin 2 GM/D5W 50 ML 2 GM/50 ML BAG IVPB (10:21)
[2024-12-21] MEDS: BUPIVACAINE/EPINEPHRINE 0.5% 50 ML VIAL 10 ML INFILTRATE (10:21)
[2024-12-21] MEDS: KETOROLAC 15 MG/ML VIAL (*BKC) IV PUSH (10:52)
--- NOTE | 2024-12-21 10:54 | W.PM.PROC2 ---
Procedure Note - Detailed Date of Procedure 12/21/24 Pre-op Diagnosis stress incont Post-op Diagnosis Same Procedure Performed mid urethral sling cystoscopy Surgeon Jn Parks MD Anesthesia MAC and Local Indications This is a female with confirm stress urinary incontinence. She desires surgical correction. She understands the risks of bleeding, infection, injury to the urinary tract, vaginal mesh extrusion, urinary tract mesh erosion, obstructive voiding requiring a secondary procedure, hip and leg pain, dyspareunia, inability to improve overactive bladder symptoms. She agrees to proceed. Description of Procedure She was correctly identified. Informed consent obtained. She was brought the operating room. She was given appropriate anesthesia. She was given appropriate perioperative antibiotics. A time-out performed. I marked out the site of the inner thigh incisions. I anesthetized the skin and made those incisions. I anesthetized the anterior vaginal wall over the mid urethra. She had significant changes of vaginal atrophy. I made a 1 cm incision. I dissected out laterally taking great care not to injure the refilled vaginal wall. I passed the helical trocars. First on the left. Then on the right. I did this from the thigh incision towards the vaginal incision. The sling was connected to the trocars and brought out through the thigh incision. I tensioned the sling appropriately. I cut and the plastic sheaths. I then closed the incision with 2 0 Vicryl. On cystoscopy there is no tumors or surgical artifact. There was no surgical artifact in the urethra. I cut the excess sling material. Close incisions with glue. She was awakened and transferred to the PACU in stable condition. Implants Urethral sling Estimated Blood Loss 20 Drains No Packing No Pathology None sent Complications No immediate complications Condition Stable Disposition PACU
[2024-12-21 10:58] VITALS: BP 92/45; PULSE 59; RESP 14; O2SAT 98
[2024-12-21 11:25] VITALS: BP 125/65; PULSE 65
[2024-12-21 11:28] VITALS: BMI 34.5
[2024-12-21 11:55] VITALS: BP 137/68; PULSE 62
[2024-12-21] MEDS: oxyCODONE HCL (*CRX) 5 MG TAB IR PO (12:23)
[2024-12-21 12:25] VITALS: BP 119/55; PULSE 66
[2024-12-21 12:50] VITALS: BP 119/47; PULSE 72
== END 2024-12-21 12:56 | disposition home or self-care (01) ==
PROVIDERS: PCP Physician Assistant; Visit Provider Urology
PROC: (CPT 57288; principal; 2024-12-21 10:45)
DX: N39.3 Stress incontinence (female) (male) (principal); M79.7 Fibromyalgia; E66.9 Obesity, unspecified; Z68.34 Body mass index [BMI] 34.0-34.9, adult; Z95.818 Presence of other cardiac implants and grafts; Z98.84 Bariatric surgery status
CPT/HCPCS: 57288; A9270; C1771; J0690; J1100; J1171; J1885; J2003; J2250; J2405; J2704; J7030; J7120